=== PATIENT | male | born 1975 | race Caucasian/White ===

== ENCOUNTER → 2019-02-17 | Outpatient (CLI) | payer BC | END | disposition home or self-care (01) | LOC: SLEEP 11:25 | PROVIDERS: ATTEND Internal Medicine | DX: Z53.9 Procedure and treatment not carried out, unspecified reason (principal) ==

== ENCOUNTER → 2019-03-17 | Outpatient (CLI) | payer BC ==
--- NOTE | 2019-03-17 22:53 | CONS ---
CONSULTATION DATE OF SERVICE: 03/17/2019 44-year-old gentleman who has been evaluated in [facility] Center for obstructive sleep apnea-hypopnea syndrome. HISTORY OF PRESENT ILLNESS/SLEEP WAKE EVALUATION: The patient has been diagnosed with obstructive sleep apnea-hypopnea syndrome in [facility] about 6 years ago. Since that time, he is using CPAP equipment every night. His weight came up and down for this period of time. Recently, his machine started to have some noise. Without machine the patient has extremely loud snoring and stops breathing during sleep. SLEEP SCHEDULE: At present his sleep schedule on working days from 10:30 p.m. to 5:30 a.m. and on weekends from 11 or 12 midnight until 8 a.m. FALLING ASLEEP: No problems with falling asleep. No TV in bedroom. DURING SLEEP: He usually sleeps on the side position. With the machine he does not snore and maybe wakes up from sleep up to 2 times, but without any episodes of nocturia. DURING THE DAY/SLEEP WAKE EVALUATION: During the day, he may feel sleepy if he does not use the machine. Usually with the machine, he feels well. [place] Sleepiness Scale a increased to 13. He increased his weight for last 5 years from about 280 pounds up to 340 pounds. PAST MEDICAL HISTORY: Hypertension, kidney stones. MEDICATIONS: Medication for high blood pressure. Patient does not remember the name. SOCIAL HISTORY: Alcohol consumption about once a week up to 2 beers. Negative for smoking. FAMILY HISTORY: Sleep apnea, snoring, cancer. PAST SURGICAL HISTORY: Past surgical history none. REVIEW OF SYSTEMS: Increasing weight, some awakenings from sleep, sometimes tiredness and sleepiness during the day. . PHYSICAL EXAM: gentleman without distress. BP 156/91, HR 77, RR 16, height 6 feet, weight 339.4 pounds, body mass index 45.8, temperature 98.5, oxygen saturation at room air 95%. HEENT: Oropharynx low position of soft palate. Mallampati 3. Restriction of nasal breathing. NECK: Wide neck 22 inches. Neck: Supple, no JVD. Thyroid is not palpable. LUNGS Clear to percussion and to auscultation. Good air exchange. No wheezing or rhonchi. HEART S1, S2 regular. No murmurs, gallops, or rubs. ABDOMEN: Obese. Soft and nontender. Bowel sounds are present. No organomegaly appreciated. EXTREMITIES No clubbing or cyanosis. CADDY MASTER Awake, alert, and oriented X3. Cranial nerves 2 to 7 intact. There is no fasciculation or atrophy. noted. No focal deficits observed. I checked the patient BiPAP unit. BiPAP pressure is 17/12 cm of water. Usage is 27 out of 30 nights more than 4 hours average 7.3 hours. The machine does not have information about apnea-hypopnea index. The patient using a full-face mask because he is opening his mouth during the sleep. IMPRESSION: 1. History of obstructive sleep apnea for 6 years. The patient continued to use CPAP equipment every night. No snoring with the machine. Low position of soft palate. A wide neck, restriction of nasal breathing, episodes of sleepiness machine became noisy. 2. Obesity, body mass index 45.8. Patient increased his weight about 60 pounds for the last six years. 3. Hypertension. 4. Kidney stones. PLAN: 1. Prescription for new BiPAP unit with automatic regimen with the range of pressure to around 20 cm of water of inspiratory pressure. 2. The patient will continue to use BiPAP equipment every night for the whole night. 3. Losing weight. 4. Sleep hygiene with regular time in bed for at least 8 hours. 5. Followup visit in 1 month. The patient will get new BiPAP unit to evaluate clinical response on treatment, compliance with treatment and check apnea-hypopnea index reading from the machine. Thank you very much for referring this patient for consultation. Sincerely, Jayy Baker MD, PhD, FAASM Diplomat of [place] [employer] Specialties [place] [employer] Contracting Executive of [facility] [place] MMODL / LAKEN: [id number] /
== END | disposition home or self-care (01) ==
LOC: SLEEP 14:56
PROVIDERS: ATTEND Internal Medicine
DX: G47.33 Obstructive sleep apnea (adult) (pediatric) (principal); E66.9 Obesity, unspecified; I10 Essential (primary) hypertension; N20.0 Calculus of kidney; Z68.42 Body mass index [BMI] 45.0-49.9, adult; Z99.89 Dependence on other enabling machines and devices
CPT/HCPCS: 99211

== ENCOUNTER 2024-06-28 07:20 | Day surgery (SDC) | payer BC ==
[2024-06-22 12:12] VITALS: BMI 44.8
[~2024-06-28 07:20] MED LIST: LACTATED RINGERS 1,000 ML IV SCH
[2024-06-28] MEDS: IV FLUID CONTINUATION 1,000 ML IV ONE (07:50)
[2024-06-28 08:04] LABS: Glucose,Whole Blood 141 mg/dL (70-110)
[2024-06-28 08:05] VITALS: TEMP 98
[2024-06-28] MEDS ORDERED: PROPOFOL 10 MG/ML 20 ML VIAL IV ONE (08:44)
[2024-06-28] MEDS ORDERED: LIDOCAINE 2% (PF) 20 MG/ML 5 ML VIAL ONE (08:44)
--- NOTE | 2024-06-28 08:45 | P.GSHP ---
History of Present Illness H&P Date: 06/28/24 Chief Complaint: Abnormal stool test, GERD 49-year-old male being evaluated for possible sleeve gastrectomy. Patient recently found to have a abnormal Cologuard. No visible rectal bleeding. No family history of colon cancer. No bowel complaints. Mild reflux. Past Medical History Past Medical History: Diabetes Mellitus, Hyperlipidemia, Hypertension History of Any Multi-Drug Resistant Organisms: None Reported Past Surgical History: No Surgical Hx Reported Past Anesthesia/Blood Transfusion Reactions: No Reported Reaction Smoking Status: Never smoker - Past Family History Brother(s) Family Medical History: Cancer Medications and Allergies Home Medications Medication Instructions Recorded Confirmed Type Atorvastatin [Lipitor] 20 mg PO DAILY 06/22/24 06/28/24 History Empagliflozin [Jardiance] 10 mg PO DAILY 06/22/24 06/28/24 History Lisinopril-Hctz 20-25 mg 1 tab PO DAILY 06/22/24 06/28/24 History [Zestoretic 20-25] Allergies Allergy/AdvReac Type Severity Reaction Status Date / Time metformin Allergy Rash/Hives Verified 06/28/24 07:54 Surgical - Exam Vital Signs Temp Pulse Resp BP Pulse Ox 98 F 70 18 139/61 93 L 06/28/24 08:03 06/28/24 08:03 06/28/24 08:03 06/28/24 08:03 06/28/24 08:03 Physical exam: General: Well-developed, well-nourished HEENT: Normocephalic, sclerae nonicteric Abdomen: Nontender, nondistended Extremities: No edema Neuro: Alert and oriented Results - Labs Abnormal Lab Results - Last 24 Hours (Table) 06/28/24 Range/Units 08:00 POC Glucose (mg/dL) 141 H (70-110) mg/dL Assessment and Plan (1) Abnormal stool test Narrative/Plan: Will proceed with upper and lower endoscopy at this time. Current Visit: Yes Status: Acute Code(s): R19.5 - OTHER FECAL ABNORMALITIES SNOMED Code(s): 455195767
--- NOTE | 2024-06-28 09:08 | P.PCN ---
Date of Procedure: 06/28/24 Procedure(s) Performed: PREOPERATIVE DIAGNOSIS: Abnormal stool test, GERD, presurgical POSTOPERATIVE DIAGNOSIS: Mild gastritis, sigmoid polyp x 2 PROCEDURE: 1. EGD with biopsy 2. Colonoscopy with snare polypectomy ANESTHESIA: MAC SURGEON: Otto Chung M.D. SPECIMENS: Antrum, sigmoid polyps ENDOSCOPIC PROCEDURE: The patient was on the endoscopy table in the left decubitus position. The Olympus gastroscope was inserted into the oropharynx and passed under direct visualization to the region of the third portion of the duodenum. From that point the scope was slowly withdrawn inspecting all surfaces carefully. There were no neoplastic inflammatory or polypoid lesions throughout the duodenum. The pylorus was widely patent. The stomach was carefully inspected. There was mild gastritis present. A biopsy of the antrum took place to rule out H. pylori. Retroflexion revealed a normal hiatus. The esophagus was then carefully examined. There were no neoplastic inflammatory or polypoid lesions throughout the visualized esophagus. The patient was kept on the endoscopy table in the left decubitus position. The Olympus colonoscope was inserted into the anus and passed under direct visualization to the base of the cecum. The appendiceal orifice was visualized. From that point the scope was slowly withdrawn inspecting all surfaces carefully. There were no neoplastic inflammatory or polypoid lesions throughout the cecum, ascending, transverse, and descending colon. In the sigmoid there were 2 small polyps removed using the snare with cautery technique. There was no visible diverticulosis. Digital rectal examination was normal. The patient was taken to the recovery room in stable condition per anesthesia guidelines. RECOMMENDATIONS: Resume diet. Await biopsies. Continue bariatric workup.
[2024-06-28 09:48] VITALS: BP 121/60; PULSE 60; RESP 16
[2024-06-28 09:53] LABS: Glucose,Whole Blood 131 mg/dL (70-110)
== END 2024-06-28 10:11 | disposition home or self-care (01) ==
LOC: ORWHC2ENDO 07:20
PROVIDERS: ATTEND Surgery
DX: K29.50 Unspecified chronic gastritis without bleeding (principal); K63.5 Polyp of colon; K21.9 Gastro-esophageal reflux disease without esophagitis; I10 Essential (primary) hypertension; E78.5 Hyperlipidemia, unspecified; E11.9 Type 2 diabetes mellitus without complications; Z79.84 Long term (current) use of oral hypoglycemic drugs; Z79.899 Other long term (current) drug therapy
CPT/HCPCS: 43239; 45385; 88305

== ENCOUNTER → 2024-09-07 | Outpatient (CLI) | payer BC ==
[2024-09-07 14:42] VITALS: BP 128/81; PULSE 74; RESP 16; TEMP 97.9
--- NOTE | 2024-09-07 15:09 | P.SLEEP ---
History of Present Illness DATE: 09/07/2024 CONSULTATION/NEW PATIENT EVALUATION HISTORY OF PRESENT ILLNESS/SLEEP-WAKE EVALUATION: 49-year-old gentleman had been evaluated in the sleep center for obstructive sleep apnea hypopnea syndrome. Patient has history of obstructive sleep apnea since 2016. Diagnosis was made in another institution. Patient continued to use BPAP equipment which is extremely old and does not have information about apnea hypopnea index. Pressure is 17 over 12 cm of water. SLEEP SCHEDULE: Usually sleep schedule from 10 PM to 5 AM on weekdays and until 67 AM on weekend. FALLING ASLEEP: Usually no problems with falling asleep. DURING SLEEP: Patient wakes up from sleep up to 5 times while using machine with 1 episode of nocturia. No history of hypnogogical hallucinations, sleep paralysis, or cataplexy. DURING THE DAY/WAKE STATE: In the morning patient wake up tired, has difficulties to pay attention, has problems with concentration. [place] sleepiness scale is increased to 11. Patient takes nap at 5 PM. PAST MEDICAL HISTORY: Hypertension, history of kidney stones, hyperlipidemia. PAST SURGICAL HISTORY: None. MEDICATIONS: Have been reviewed, please see below. SOCIAL HISTORY: Please see below. FAMILY HISTORY: Please see below. REVIEW OF SYSTEMS: Awakenings from sleep, sleepiness during the day while on treatment with BiPAP. No fevers. No double vision. No recent chest pain. No shortness of breath. No abdominal pain. No bleeding episodes. No blood in urine. No seizure episodes. PHYSICAL EXAMINATION: GENERAL: A pleasant patient without any distress. VITAL SIGNS: Please see below, weight 345.2 pounds, BMI 46.7. HEENT: PERRLA, EOMI. Evaluation of oropharynx showed tongue protrudes midline, low position of soft palate Mallampati 3. NECK: Supple. No JVD. Thyroid is not palpable. 22.5 inches in circumference. LUNGS: Clear to percussion and to auscultation. Good air exchange. No wheezing or rhonchi. HEART: S1, S2 regular. No murmurs, gallops or rubs. ABDOMEN: Soft and nontender. Bowel sounds are present. No organomegaly appreciated. EXTREMITIES: No clubbing or cyanosis. ANIMAL FEEDER: Awake, alert, and oriented x3. Cranial nerves 2 to 7 intact. There is no fasciculation or atrophy noted. No focal deficits observed. ASSESSMENT: 1. History of obstructive sleep apnea diagnosed in 2015 in another institution. Results of sleep studies not available. Patient continued to use BiPAP equipment but has multiple awakenings from sleep and sleepiness during the day. BiPAP unit is extremely old and does not have information about apnea hypopnea index. Low position of soft palate Mallampati 3, extremely wide neck 22.5 inches in circumference. Obstructive sleep apnea hypopnea syndrome. 2. Obesity, BMI 46.7. 3. Hypertension. 4. Hyperlipidemia. 5 history of kidney stones. PLAN: 1. Polysomnography for evaluation of patient's breathing during sleep at the present time. 2. Following plan after reading sleep study. 3. Preferable position during sleep on the side. 4. No driving if patient feels any sleepiness. Patient is aware of civil and criminal liability for unsafe driving. 5. Sleep hygiene with regular sleep time for at least 7.5-8 hours. 6. Watching and losing weight. Thank you very much for referring this patient for consultation. Sincerely, Jayy Baker MD, PhD, FAASM. Diplomat of [place] Board of [employer] Medicine, Sleep Medicine Board by [place] [employer] Specialities [place] [employer] Medicine Bus Company Manager of [facility] [place] cc: Sruthi Gage MD Past Medical History Past Medical History: Diabetes Mellitus, Hyperlipidemia, Hypertension History of Any Multi-Drug Resistant Organisms: None Reported Past Surgical History: No Surgical Hx Reported Past Anesthesia/Blood Transfusion Reactions: No Reported Reaction Past Psychological History: No Psychological Hx Reported Smoking Status: Never smoker Past Alcohol Use History: Occasional Past Drug Use History: None Reported - Past Family History Brother(s) Family Medical History: Cancer Medications and Allergies Home Medications Medication Instructions Recorded Confirmed Type Atorvastatin [Lipitor] 20 mg PO DAILY 06/22/24 09/07/24 History Empagliflozin [Jardiance] 10 mg PO DAILY 06/22/24 09/07/24 History Lisinopril-Hctz 20-25 mg 1 tab PO DAILY 06/22/24 09/07/24 History [Zestoretic 20-25] Allergies Allergy/AdvReac Type Severity Reaction Status Date / Time metformin Allergy Rash/Hives Verified 06/28/24 07:54 Physical Exam Vitals: Vital Signs Temp Pulse Resp BP Pulse Ox 09/07/24 14:41 97.9 F 74 16 128/81 96 Sleep Note - Sleep Data ESS Total: 11 - Sleep Note Sleep Note: Temperature: 97.9 F Pulse Rate: 74 Respiratory Rate: 16 Blood Pressure: 128/81 SpO2: 96 Height: Weight: BMI: Neck Circumference: 22.5
== END ==
LOC: 3 N SLEEP 14:12
PROVIDERS: ATTEND Internal Medicine
DX: G47.33 Obstructive sleep apnea (adult) (pediatric) (principal); E66.9 Obesity, unspecified; I10 Essential (primary) hypertension; E78.5 Hyperlipidemia, unspecified; Z87.442 Personal history of urinary calculi; Z68.42 Body mass index [BMI] 45.0-49.9, adult; Z88.8 Allergy status to other drugs, medicaments and biological substances
CPT/HCPCS: 99211

== ENCOUNTER → 2024-09-13 | Outpatient (CLI) | payer BC ==
--- NOTE | 2024-09-13 15:04 | P.BASOAP ---
Subjective Progress Note Date: 09/13/24 Principal diagnosis: Morbid obesity Patient returns for recheck. Patient underwent upper endoscopy and colonoscopy in June. Patient had 2 hyperplastic polyps. Gastritis with H. pylori negative. No hiatal hernia seen. No changes to his previous history and physical. Did have his psychiatric evaluation. Has lost 4 pounds since his last visit. Objective - Vital Signs Vital signs: Intake & Output 09/12/24 09/13/24 09/13/24 18:59 06:59 18:59 Weight 156.036 kg - Exam Abdomen: Soft, nontender, nondistended Assessment/Plan (1) Morbid obesity Narrative/Plan: 49-year-old male with morbid obesity. BMI today 45.4. Patient remains interested in laparoscopic da Eric assisted sleeve gastrectomy. Surgical co nsent form and associated risks reviewed in detail. Anticipated weight loss discussed as well. Will schedule surgery at this time. The risks of bleeding, infection, stenosis, stricture, leak, abscess, fistula formation, peritonitis, poor weight loss, reflux, vomiting, conversion to an open procedure, aborting sleeve gastrectomy, OH, PE, DVT, and were discussed. The patient understands and wishes to proceed. Plan: Date: Initial Weight: Initial BMI: Current Weight: 156.036 kg Current BMI: Type of Surgery: Total Volume in Band: Previous Volume: Volume Removed: Volume Added: Band Size:
[2024-09-13 15:20] VITALS: BP 174/79; PULSE 76; RESP 16; TEMP 97.4; BMI 45.3
== END ==
LOC: BARWHC3 14:19
PROVIDERS: ATTEND Surgery
DX: E66.01 Morbid (severe) obesity due to excess calories (principal); Z68.42 Body mass index [BMI] 45.0-49.9, adult; Z88.8 Allergy status to other drugs, medicaments and biological substances; Z87.19 Personal history of other diseases of the digestive system
CPT/HCPCS: 99211

== ENCOUNTER → 2024-09-26 | Outpatient (CLI) | payer BC ==
[2024-09-26 13:14] VITALS: BMI 45.6
== END ==
LOC: BARWHC3 12:51
PROVIDERS: ATTEND Surgery
DX: E66.01 Morbid (severe) obesity due to excess calories (principal); Z71.3 Dietary counseling and surveillance; Z88.8 Allergy status to other drugs, medicaments and biological substances; Z68.42 Body mass index [BMI] 45.0-49.9, adult
CPT/HCPCS: 97804

== ENCOUNTER → 2024-09-29 | Outpatient (CLI) | payer BC ==
--- NOTE | 2024-10-03 13:37 | P.PCN ---
Description of Procedure: CLINICAL: A home sleep apnea test has been done for confirmation of possible obstructive sleep apnea-hypopnea syndrome. DESCRIPTION OF PROCEDURE: RESULTS: Recording time was 6 hours 44 minutes. Evaluation time was 6 hours 31 minutes. Evaluation time is sufficient for making conclusion about results of the test. Raw data of sleep recording has been reviewed and is adequate. Respiratory channel showed 16 apneas and 128 hypopneas. Apnea-hypopnea index was 22.1 per hour. Pulse rate in the range between minimum 53, maximum 103, average 64 by computer calculation. Lowest desaturation was 81%. IMPRESSION: 1. Moderate Obstructive Sleep Apnea Hypopnea Syndrome. Pulm sleep apnea test could underestimate severity of sleep apnea. Please see other impressions from consultation. PLAN: 1. The patient should have PAP titration for correction of respiratory abnormallities during sleep. Previous titration which was done in another institution many years ago recommended treatment with BiPAP. 2. Watching and losing weight. 3. Sleep hygiene with regular time in bed for at least 8 hours. 4. No driving if feeling any sleepiness. Thank you very much for allowing me to participate in the management of your patient. Sincerely, Jayy Baker MD, PhD, FAASM Diplomat of [place] Board [employer] Specialties Sleep Medicine Board of [place] Board of Internal Medicine Continuing Education Dean of [facility] [place] cc: Sruthi Gage MD
== END ==
LOC: 3 N SLEEP 16:47
PROVIDERS: ATTEND Internal Medicine
DX: G47.33 Obstructive sleep apnea (adult) (pediatric) (principal); Z88.8 Allergy status to other drugs, medicaments and biological substances

== ENCOUNTER → 2024-09-30 | Outpatient (CLI) | payer BC ==
[2024-09-30 10:40] LABS: HCT 51.4 % (39.6-50.0); HGB 17.1 g/dL (13.0-17.0); MCHC 33.3 g/dL (32.0-37.0); MCV 84.3 FL (80.0-97.0); NRBC Per 100 WBC 0 X 10*3/uL (0.00-0.01); Platelet Count 170 X 10*3/uL (140-440); RDW 13.7 % (11.5-14.5); WBC 8.85 X 10*3/uL (4.50-10.00)
[2024-09-30 11:03] LABS: ALT 58 U/L (10-49); AST 34 U/L (14-35); Albumin 4.4 g/dL (3.8-4.9); Albumin/Globulin Ratio 1.52 Ratio (1.60-3.17); Alkaline Phosphatase 116 U/L (41-126); Blood Urea Nitrogen 18.5 mg/dL (9.0-27.0); Calcium 9.7 mg/dL (8.7-10.3); Carbon Dioxide 26.8 mmol/L (21.6-31.8); Chloride 96 mmol/L (96-109); Globulin 2.9 g/dL (1.6-3.3); Glucose 157 mg/dL (70-110); Iron 58 UG/DL (65-175); Potassium 3.1 mmol/L (3.5-5.5); Sodium 137 mmol/L (135-145); Total Protein 7.3 g/dL (6.2-8.2)
== END | disposition home or self-care (01) ==
LOC: LABWHC1 06:58
PROVIDERS: ATTEND Surgery
DX: E55.9 Vitamin D deficiency, unspecified (principal); E66.01 Morbid (severe) obesity due to excess calories; K90.89 Other intestinal malabsorption
CPT/HCPCS: 36415; 80053; 80323; 82306; 82607; 82746; 83036; 83540; 84425; 85027

== ENCOUNTER 2024-11-02 19:35 | Outpatient (CLI) | payer BC ==
--- NOTE | 2024-11-03 12:06 | P.PCN ---
Description of Procedure: CLINICAL: Titration with positive air pressure has been done for correction of respiratory abnormalities during sleep. DESCRIPTION OF PROCEDURE: The standard montage for clinical polysomnography included the electroencephalogram, the electrocardiogram, the mentalis surface electromyography and Lead II cardiography. The respiratory battery consisted of measurements of nasal /buccal air flow, pressure transducer measurements from the nose, thoracic and /or abdominal effort and intercostal surface electromyography. Video monitoring has been done to check for any parasomnia events. Nocturnal oxyhemoglobin saturations were obtained by finger oximetry. Step-monroy titration with positive airway pressure was utilized to control respiratory events. Raw data of sleep recording has been reviewed and is adequate. RESULTS: Sleep efficiency was normal 92.7%. Latency to sleep onset was normal 13.0 minutes.]. Sleep architecture showed stage N1 was short 0.4%, Delta sleep was normal at 12.4%, REM sleep was normal and high range 28.5%. Heart rate was minimum 54 BPM, maximum 67 BPM, average 60 BPM. EMG showed 0 periodic limb movements per hour with 0 micriarousals per hour. PAP titration have been done with CPAP up to the pressure 14 cm H2O. The best results were at the pressure 14 cm H2O. Apnea hypopnea index reduced to 3.0. IMPRESSION: 1. Obstructive sleep apnea hypopnea syndrome on controle with PAP treatment. 2. No significant periodic limb movements have been documented. Please see other impressions from consultation. PLAN: 1. The patient will have treatment with positive air pressure equipment with the level of pressure AutoPap 8-15 cm H2O and should use it every night for the whole night. 2. Watching and losing weight. 3. Sleep hygiene with regular time in bed for at least 8 hours. 4. No driving if feeling any sleepiness. 5. I will see the patient for follow up visit to explain the results of the test, recommendations, check compliance with treatment and make any necessary adjustment related to mask fitting, pressure and humidification. Thank you very much for allowing me to participate in the management of your patient. Sincerely, Jayy Baker MD, PhD, FAASM Diplomat of [place] Board of Medical Specialties Sleep Medicine Board of [place] Board of Internal Medicine Ornamental Metalwork Designer of [facility] [place] cc: Sruthi Gage MD
== END 2024-11-03 05:20 | disposition home or self-care (01) ==
LOC: 3 N SLEEP 19:35
PROVIDERS: ATTEND Internal Medicine
DX: G47.33 Obstructive sleep apnea (adult) (pediatric) (principal); Z88.8 Allergy status to other drugs, medicaments and biological substances
CPT/HCPCS: 95811

== ENCOUNTER → 2024-11-08 | Outpatient (CLI) | payer BC ==
[2024-11-08 19:35] LABS: Basophils # (A) 0.05 X 10*3/uL (0.00-0.10); Basophils % (A) 0.5 %; Eosinophils # (A) 0.29 X 10*3/uL (0.04-0.35); Eosinophils % (A) 2.8 %; HCT 52.3 % (39.6-50.0); HGB 17.9 g/dL (13.0-17.0); Lymphocytes # (A) 3.32 X 10*3/uL (0.90-5.00); Lymphocytes % (A) 32.5 %; MCH 28.7 pg (27.0-32.0); MCHC 34.2 g/dL (32.0-37.0); MCV 83.9 FL (80.0-97.0); Monocytes # (A) 0.98 X 10*3/uL (0.20-1.00); Monocytes % (A) 9.6 %; NRBC Per 100 WBC 0 X 10*3/uL (0.00-0.01); Neutrophils # (A) 5.57 X 10*3/uL (1.80-7.70); Neutrophils % (A) 54.4 %; Platelet Count 213 X 10*3/uL (140-440); RBC 6.23 X 10*6/uL (4.40-5.60); RDW 13.3 % (11.5-14.5); WBC 10.23 X 10*3/uL (4.50-10.00)
[2024-11-08 19:54] LABS: ALT 103 U/L (10-49); AST 65 U/L (14-35); Albumin 4.8 g/dL (3.8-4.9); Albumin/Globulin Ratio 1.55 Ratio (1.60-3.17); Alkaline Phosphatase 100 U/L (41-126); BUN/Creat Ratio 18.67 Ratio (12.00-20.00); Blood Urea Nitrogen 22.4 mg/dL (9.0-27.0); Calcium 10.2 mg/dL (8.7-10.3); Chloride 93 mmol/L (96-109); Globulin 3.1 g/dL (1.6-3.3); Glucose 107 mg/dL (70-110); Potassium 3.6 mmol/L (3.5-5.5); Sodium 135 mmol/L (135-145); Total Bilirubin 2.2 mg/dL (0.3-1.2); Total Protein 7.9 g/dL (6.2-8.2)
== END | disposition home or self-care (01) ==
LOC: LABWHC1 12:28
PROVIDERS: ATTEND Surgery
DX: Z01.818 Encounter for other preprocedural examination (principal)
CPT/HCPCS: 36415; 80053; 85025; 86850; 86900; 86901

== ENCOUNTER → 2024-11-18 | Outpatient (CLI) | payer BC ==
[2024-11-18 11:04] VITALS: BP 120/76; PULSE 70; RESP 16; TEMP 98.2; BMI 41.0
== END ==
LOC: BARWHC3 10:17
PROVIDERS: ATTEND Surgery
DX: E66.01 Morbid (severe) obesity due to excess calories (principal); Z53.9 Procedure and treatment not carried out, unspecified reason
CPT/HCPCS: 99211

== ENCOUNTER → 2024-12-06 | Outpatient (CLI) | payer BC ==
[2024-12-06 13:38] VITALS: BP 124/56; PULSE 81; RESP 16; TEMP 97.7; BMI 39.5
--- NOTE | 2024-12-06 13:52 | P.BASOAP ---
Subjective Progress Note Date: 12/06/24 Principal diagnosis: Morbid obesity Patient returns for recheck. Last seen 2 weeks ago. Has lost 5 pounds since then. Tolerating diet. Decreased appetite. Still restricted. No nausea or vomiting. No heartburn. Remains on antiacids. Denies pain. Objective - Vital Signs Vital signs: Vital Signs Temp 97.7 F 12/06/24 13:36 Pulse 81 12/06/24 13:36 Resp 16 12/06/24 13:36 BP 124/56 12/06/24 13:36 Pulse Ox FiO2 Intake & Output 12/05/24 12/06/24 12/06/24 18:59 06:59 18:59 Weight 136.078 kg - Exam Abdomen: Soft, nontender, nondistended, incisions clean and dry Assessment/Plan (1) Morbid obesity Narrative/Plan: Patient doing well after sleeve gastrectomy 3 weeks ago. Check 1 month labs next week. Follow-up 1 month. Gradually resume normal exercise routine. May return to work 12/19. Plan: Date: 12/06/24 Initial Weight: 157.85 kg Initial BMI: 45.9 Current Weight: 136.078 kg Current BMI: 39.5 Type of Surgery: Vertical Sleeve Gastrectomy Total Volume in Band: Previous Volume: Volume Removed: Volume Added: Band Size:
== END ==
LOC: BARWHC3 13:19
PROVIDERS: ATTEND Surgery
DX: E66.01 Morbid (severe) obesity due to excess calories (principal); Z68.39 Body mass index [BMI] 39.0-39.9, adult; Z88.9 Allergy status to unspecified drugs, medicaments and biological substances
CPT/HCPCS: 97803; 99211

== ENCOUNTER → 2024-12-13 | Outpatient (CLI) | payer BC ==
[2024-12-13 16:47] LABS: HCT 49.2 % (39.6-50.0); MCH 28.8 pg (27.0-32.0); MCHC 32.5 g/dL (32.0-37.0); MCV 88.5 FL (80.0-97.0); Mean Platelet Volume 14.5 FL (9.5-12.2); NRBC Per 100 WBC 0 X 10*3/uL (0.00-0.01); Platelet Count 164 X 10*3/uL (140-440); RBC 5.56 X 10*6/uL (4.40-5.60); RDW 14.8 % (11.5-14.5); WBC 5.45 X 10*3/uL (4.50-10.00)
[2024-12-13 17:01] LABS: Iron 54 UG/DL (65-175)
[2024-12-13 17:03] LABS: ALT 57 U/L (10-49); AST 39 U/L (14-35); Albumin 4.6 g/dL (3.8-4.9); Albumin/Globulin Ratio 1.84 Ratio (1.60-3.17); Alkaline Phosphatase 94 U/L (41-126); BUN/Creat Ratio 18.78 Ratio (12.00-20.00); Blood Urea Nitrogen 16.9 mg/dL (9.0-27.0); Calcium 9.8 mg/dL (8.7-10.3); Carbon Dioxide 22.5 mmol/L (21.6-31.8); Chloride 103 mmol/L (96-109); Globulin 2.5 g/dL (1.6-3.3); Glucose 69 mg/dL (70-110); Potassium 3.9 mmol/L (3.5-5.5); Sodium 140 mmol/L (135-145); Total Protein 7.1 g/dL (6.2-8.2)
== END | disposition home or self-care (01) ==
LOC: LABWHC1 08:22
PROVIDERS: ATTEND Surgery
DX: K90.9 Intestinal malabsorption, unspecified (principal); E55.9 Vitamin D deficiency, unspecified
CPT/HCPCS: 36415; 80053; 82306; 82607; 82746; 83540; 84425; 85027

== ENCOUNTER → 2025-01-03 | Outpatient (CLI) | payer BC ==
[2025-01-03 13:35] VITALS: BP 120/81; PULSE 52; RESP 16; TEMP 98; BMI 37.0
--- NOTE | 2025-01-03 14:56 | P.BASOAP ---
Subjective Progress Note Date: 01/03/25 Principal diagnosis: Morbid obesity Patient returns for recheck. Underwent sleeve gastrectomy November 14. Doing well. Excellent weight loss. He is lost another 18 pounds since his last visit. No nausea or vomiting. No heartburn. Patient's recent 1 month labs show a bilirubin of 3.0. It was 2 preoperatively. No history of liver problems other than fatty liver he states. Objective - Vital Signs Vital signs: Vital Signs Temp 98 F 01/03/25 13:32 Pulse 52 L 01/03/25 13:32 Resp 16 01/03/25 13:32 BP 120/81 01/03/25 13:32 Pulse Ox FiO2 Intake & Output 01/02/25 01/03/25 01/03/25 18:59 06:59 18:59 Weight 127.459 kg - Exam Abdomen: Soft, nontender, nondistended Assessment/Plan (1) Morbid obesity Narrative/Plan: 49-year-old male doing well after prior sleeve gastrectomy. Continue dietary and exercise regimen. Continue antiacid therapy for now. Follow-up early February. Will check 3-month labs at that time. If liver enzymes remain elevated we will refer to GI. Plan: Date: 01/03/25 Initial Weight: 157.85 kg Initial BMI: 45.9 Current Weight: 127.459 kg Current BMI: 37.0 Type of Surgery: Total Volume in Band: Previous Volume: Volume Removed: Volume Added: Band Size:
== END ==
LOC: BARWHC3 13:25
PROVIDERS: ATTEND Surgery
DX: E66.01 Morbid (severe) obesity due to excess calories (principal); Z68.37 Body mass index [BMI] 37.0-37.9, adult; Z88.8 Allergy status to other drugs, medicaments and biological substances
CPT/HCPCS: 99211

== ENCOUNTER → 2025-01-12 | Outpatient (CLI) | payer BC ==
[2025-01-12 16:28] VITALS: BP 108/64; PULSE 52; RESP 16; TEMP 98.2
--- NOTE | 2025-01-12 17:05 | P.PROGSL ---
Subjective DATE: 01/12/2025 FOLLOW UP VISIT. Patient with obstructive sleep apnea hypopnea syndrome return to sleep center for follow-up visit. Recently patient had sleep study which documented obstructive sleep apnea hypopnea syndrome. Patient was initiated on PAP therapy and today is first visit after treatment was started. Patient was able to use PAP equipment every night for the whole night. The patient does not have significant problems with the mask, PAP pressure and humidification. [place] sleepiness scale is 9, which is borderline. I checked information from PAP unit. PAP unit pressure 8-15, average 11.8 cm H2O. Usage is 100% for more then 4 hours, average 7.25 hours per night. Leak is 17.0 l/m, which is in acceptable range. Apnea Hypopnea Index is 3.2, which is normal. MEDICATIONS: Please see below During physical exam: GENERAL: A pleasant patient without any distress. VITAL SIGNS: Please see below, weight 276 pounds. HEENT: PERRLA, EOMI.low position of soft palate, Mallapati 3 . NECK: Supple. No JVD. LUNGS: Clear to percussion and to auscultation. Good air exchange. No wheezing or rhonchi. HEART: S1, S2 regular. ABDOMEN: Soft and nontender.[] EXTREMITIES: No clubbing or cyanosis. SHOT COAT TENDER: Awake, alert, and oriented x3. No focal deficit. Impressions: 1. Obstructive sleep apnea-hypopnea syndrome. Patient demonstrated great compliance with treatment, benefiting from treatment. 2. Obesity, patient lost 70 pounds since previous visit. 3. Status post gastric sleeve surgery. 4. Hypertension. 5. Hyperlipidemia. 6. History of kidney stones. Plan: 1. Continue using PAP equipment every night for the whole night. 2. To change air filter at least 1-2 times per month. 3. PAP unit should stay lower then position of the head. 4. Advised patient to remove all remaining water from humidifier canister daily and make it dry after each usage. Refill canister with fresh distilled water before each usage. 5. Sleep hygiene with regular time in bed for at least 8 hours. 6. Precautions related to driving. No driving if feel any sleepiness. 7. I will maintain prescription for PAP supplies including mask, tube, filters. 8. Follow up visit in 8 months or earlier if patient has any problems. 9. Watching and continue losing weight. Thank you very much for allowing me to participate in the management of your patient. Jayy Baker MD, PhD, FAASM. Diplomat of [place] Board of Sleep Medicine, Sleep Medicine Board by [place] Board of Internal Medicine Web Architect of [facility] [place] Objective - Vital Signs Vital Signs: Vital Signs Temp 98.2 F 01/12/25 16:27 Pulse 52 L 01/12/25 16:27 Resp 16 01/12/25 16:27 BP 108/64 01/12/25 16:27 Pulse Ox 96 01/12/25 16:27 FiO2 Home Medications: Home Medications Medication Instructions Recorded Confirmed Type Empagliflozin [Jardiance] 10 mg PO DAILY 06/22/24 01/04/25 History Latanoprost Ophth [Xalatan 0.005%] 1 drop BOTH EYES HS 11/08/24 01/04/25 History Omeprazole [PriLOSEC] 40 mg PO DAILY #30 cap 11/15/24 01/04/25 Rx ursodioL [Ursodiol] 300 mg PO BID 30 Days #60 capsule 11/15/24 01/04/25 Rx
== END ==
LOC: 3 N SLEEP 15:54
PROVIDERS: ATTEND Internal Medicine
DX: G47.33 Obstructive sleep apnea (adult) (pediatric) (principal); I10 Essential (primary) hypertension; E78.5 Hyperlipidemia, unspecified; Z87.442 Personal history of urinary calculi; Z98.84 Bariatric surgery status
CPT/HCPCS: 99212

== ENCOUNTER → 2025-02-10 | Outpatient (CLI) | payer BC ==
[2025-02-10 15:13] LABS: HCT 51.2 % (39.6-50.0); HGB 17.1 g/dL (13.0-17.0); MCH 29.2 pg (27.0-32.0); MCHC 33.4 g/dL (32.0-37.0); MCV 87.4 FL (80.0-97.0); Mean Platelet Volume 14.2 FL (9.5-12.2); NRBC Per 100 WBC 0 X 10*3/uL (0.00-0.01); Platelet Count 175 X 10*3/uL (140-440); RBC 5.86 X 10*6/uL (4.40-5.60); RDW 14.3 % (11.5-14.5); WBC 5.93 X 10*3/uL (4.50-10.00)
[2025-02-10 16:01] LABS: ALT 37 U/L (10-49); AST 29 U/L (14-35); Albumin 4.4 g/dL (3.8-4.9); Albumin/Globulin Ratio 1.76 Ratio (1.60-3.17); Alkaline Phosphatase 92 U/L (41-126); BUN/Creat Ratio 17.88 Ratio (12.00-20.00); Blood Urea Nitrogen 14.3 mg/dL (9.0-27.0); Calcium 9.8 mg/dL (8.7-10.3); Carbon Dioxide 25.2 mmol/L (21.6-31.8); Chloride 103 mmol/L (96-109); Globulin 2.5 g/dL (1.6-3.3); Glucose 83 mg/dL (70-110); Iron 63 UG/DL (65-175); Potassium 3.9 mmol/L (3.5-5.5); Sodium 142 mmol/L (135-145); Total Bilirubin 1.8 mg/dL (0.3-1.2); Total Protein 6.9 g/dL (6.2-8.2)
== END | disposition home or self-care (01) ==
LOC: LABWHC1 08:52
PROVIDERS: ATTEND Surgery
DX: E55.9 Vitamin D deficiency, unspecified (principal); E66.01 Morbid (severe) obesity due to excess calories; K90.9 Intestinal malabsorption, unspecified
CPT/HCPCS: 36415; 80053; 82306; 82607; 82746; 83540; 84425; 85027

== ENCOUNTER → 2025-02-14 | Outpatient (CLI) | payer BC ==
[2025-02-14 13:51] VITALS: BP 114/73; PULSE 52; RESP 16; TEMP 98; BMI 34.2
--- NOTE | 2025-02-14 15:39 | P.BASOAP ---
Subjective Progress Note Date: 02/14/25 Principal diagnosis: Morbid obesity Patient returns for recheck. Doing well since his last visit. BMI down to 34. 21 pounds lost since last visit. Had an ultrasound done to look at his elevated liver enzymes which showed fatty liver. Repeat liver enzymes look good. Bilirubin still mildly elevated however similar to preop levels. Patient is off of his diabetic medications fully at this time. Still on antiacids. No GERD symptoms. No vomiting. Objective - Vital Signs Vital signs: Vital Signs Temp 98 F 02/14/25 13:49 Pulse 52 L 02/14/25 13:49 Resp 16 02/14/25 13:49 BP 114/73 02/14/25 13:49 Pulse Ox FiO2 Intake & Output 02/13/25 02/14/25 02/14/25 18:59 06:59 18:59 Weight 117.934 kg - Exam Abdomen: Soft, nontender, nondistended Assessment/Plan (1) Morbid obesity Narrative/Plan: Patient doing well today. Continue dietary and exercise regimen. Recheck 6 weeks. Start taking antiacids every other day for 3 to 4 weeks. If no symptoms of nausea or heartburn discontinue. Plan: Date: 02/14/25 Initial Weight: 157.85 kg Initial BMI: 45.9 Current Weight: 117.934 kg Current BMI: 34.2 Type of Surgery: Vertical Sleeve Gastrectomy Total Volume in Band: Previous Volume: Volume Removed: Volume Added: Band Size:
== END ==
LOC: BARWHC3 13:21
PROVIDERS: ATTEND Surgery
DX: E66.01 Morbid (severe) obesity due to excess calories (principal); Z68.34 Body mass index [BMI] 34.0-34.9, adult; Z88.8 Allergy status to other drugs, medicaments and biological substances
CPT/HCPCS: 97803; 99211

== ENCOUNTER → 2025-04-04 | Outpatient (CLI) | payer BC ==
[2025-04-04 13:06] VITALS: BP 118/75; PULSE 54; RESP 16; TEMP 98; BMI 32.5
--- NOTE | 2025-04-04 16:20 | P.BASOAP ---
Subjective Progress Note Date: 04/04/25 Principal diagnosis: Morbid obesity Patient returns for recheck. Lost 13 pounds since his last visit. Did try stopping his antiacids. Developed some increased GERD symptoms. Does well with every other day dosing. Some increased snacking recently. Objective - Vital Signs Vital signs: Vital Signs Temp 98 F 04/04/25 13:03 Pulse 54 L 04/04/25 13:03 Resp 16 04/04/25 13:03 BP 118/75 04/04/25 13:03 Pulse Ox FiO2 Intake & Output 04/03/25 04/04/25 04/04/25 18:59 06:59 18:59 Weight 112.037 kg - Exam Abdomen: Soft, nontender, nondistended Assessment/Plan (1) Morbid obesity Narrative/Plan: Patient doing well after prior sleeve gastrectomy. Resume every other day antiacids. Continue increasing exercise and monitor caloric intake. Follow-up 4 to 6 weeks. Check 6-month labs next visit. Plan: Date: 04/04/25 Initial Weight: 157.85 kg Initial BMI: 45.9 Current Weight: 112.037 kg Current BMI: 32.5 Type of Surgery: Vertical Sleeve Gastrectomy Total Volume in Band: Previous Volume: Volume Removed: Volume Added: Band Size:
== END ==
LOC: BARWHC3 12:57
PROVIDERS: ATTEND Surgery
DX: E66.01 Morbid (severe) obesity due to excess calories (principal); Z88.8 Allergy status to other drugs, medicaments and biological substances; Z68.32 Body mass index [BMI] 32.0-32.9, adult
CPT/HCPCS: 99211